=== PATIENT | male | born 1975 | race Hispanic/Latino ===

== ENCOUNTER 2022-06-12 12:55 | Inpatient (IN) | payer SELFPAY ==
[~2022-06-12 12:55] MED LIST: Iopamidol-370 76% 500 ML 1 ML ONE
[2022-06-12 13:18] LABS: #Basophils 0.1 thou/uL (0.0-0.2); #Eosinphils 0.1 thou/uL (0.0-0.7); #Lymphocytes 1.8 thou/uL (1.20-3.40); #Monocytes 0.4 thou/uL (0.11-0.59); #Neutrophils 12.1 thou/uL (1.40-6.50); %Basophils 0.7 % (0.0-1.0); %Eosinophils 0.6 % (0.0-10.0); %Lymphocytes 12.6 % (21.0-51.0); %Monocytes 2.8 % (0.0-10.0); %Neutrophils 83.3 % (42.0-75.0); Hemoglobin 15.1 g/dL (14.0-18.0); Mean Corpuscular HGB CONC 34.8 g/dL (32.0-36.0); Mean Corpuscular Hemoglobin 33.6 pg (27.0-31.0); Mean Corpuscular Volume 96.4 fl (78.0-98.0); Platelet Count 256 10x3/uL (130-400); RBC Distribution Width 11.9 % (11.5-14.5); White Blood Cell (WBC) Count 14.6 10x3/uL (4.8-10.8)
[2022-06-12 13:32] LABS: Acetaminophen Less than 10.0 mcg/mL (10.0-30.0); Alcohol Less than 10 mg/dL (Less than 10); Salicylate Less than 8.0 mg/dL (15.0-30.0)
[2022-06-12 13:35] LABS: PTT 25.1 sec (22.9-36.1); Prothrombin Time 13.1 sec (12.0-14.7)
[2022-06-12 13:38] LABS: ALT (SGPT) 19 U/L (8-55); AST (SGOT) 25 U/L (5-34); Albumin 4.7 g/dL (3.5-5.0); Alcohol Less than 10 mg/dL (Less than 10); Alkaline Phosphatase 57 U/L (40-110); Anion Gap 16 mmol/L (10-20); BUN (Urea Nitrogen) 14 mg/dL (8.9-20.6); Bilirubin, Total 0.9 mg/dL (0.2-1.2); Calc. Creatinine Clearance 0 mL/min (70-130); Calcium 9.4 mg/dL (7.8-10.44); Carbon Dioxide 21 mmol/L (22-29); Chloride 104 mmol/L (98-107); Estimated GFR 110; Globulin 3.1 g/dL (2.4-3.5); Glucose 105 mg/dL (70-105); Lipase 13 U/L (8-78); Potassium 3.8 mmol/L (3.5-5.1); Protein, Total 7.8 g/dL (6.0-8.3); Sodium 137 mmol/L (136-145)
[2022-06-12] MEDS ORDERED: Acetaminophen 325 MG TAB PO PRN (13:53)
[2022-06-12] MEDS ORDERED: Ipratropium/Albuterol 3 ML NEB NEB PRN (13:53)
[2022-06-12 16:52] VITALS: BMI 25.9
[2022-06-12] MEDS ORDERED: traMADol HCl 50 MG TAB PO PRN (17:54)
[2022-06-12] MEDS: traMADol HCl 50 MG TAB PO SCH ×2 (18:41→23:42)
[2022-06-12] MEDS ORDERED: Acetaminophen 500 MG TAB PO SCH (18:45)
[2022-06-12] MEDS: Sodium Chloride 0.9% 1,000 ML IV SCH (18:52)
[2022-06-12] MEDS ORDERED: TETANUS, DIPHTHERIA TOX,ADULT (TDVAX) 0.5 ML VIAL IM ONE (21:00)
[2022-06-12] MEDS: Gabapentin 300 MG CAP PO SCH (21:00)
[2022-06-12] MEDS: Senokot S 8.6-50 MG TAB PO SCH (21:01)
[2022-06-12] MEDS ORDERED: Ketorolac Tromethamine 30 MG/ML VIAL IVP PRN (23:12)
[2022-06-12] MEDS: Acetaminophen 500 MG TAB PO SCH (23:41)
[2022-06-12] MEDS: Morphine 2 MG/ML VIAL SLOW IVP PRN (23:43)
[2022-06-13] MEDS: Sodium Chloride 0.9% 1,000 ML IV SCH ×3 (03:10→11:33)
[2022-06-13] MEDS: Acetaminophen 500 MG TAB PO SCH (05:41)
[2022-06-13] MEDS: traMADol HCl 50 MG TAB PO SCH (05:42)
[2022-06-13] MEDS: Morphine 2 MG/ML VIAL SLOW IVP PRN ×2 (05:48→11:42)
[2022-06-13 06:07] LABS: #Lymphocytes 1.8 thou/uL (1.20-3.40); #Monocytes 0.5 thou/uL (0.11-0.59); #Neutrophils 5.7 thou/uL (1.40-6.50); %Basophils 0.2 % (0.0-1.0); %Eosinophils 0.4 % (0.0-10.0); %Lymphocytes 22.6 % (21.0-51.0); %Monocytes 6.6 % (0.0-10.0); %Neutrophils 70.3 % (42.0-75.0); Mean Corpuscular HGB CONC 34.3 g/dL (32.0-36.0); Mean Corpuscular Hemoglobin 33.2 pg (27.0-31.0); Mean Platelet Volume 7.9 fL (7.4-10.4); Platelet Count 226 10x3/uL (130-400); White Blood Cell (WBC) Count 8.2 10x3/uL (4.8-10.8)
[2022-06-13 06:21] LABS: Anion Gap 12 mmol/L (10-20); BUN (Urea Nitrogen) 15 mg/dL (8.9-20.6); Calc. Creatinine Clearance 101 mL/min (70-130); Calcium 8.6 mg/dL (7.8-10.44); Carbon Dioxide 21 mmol/L (22-29); Chloride 105 mmol/L (98-107); Estimated GFR 101; Glucose 104 mg/dL (70-105); Magnesium 2.2 mg/dL (1.6-2.6); Phosphorus 4.1 mg/dL (2.3-4.7); Potassium 3.9 mmol/L (3.5-5.1); Sodium 134 mmol/L (136-145)
[2022-06-13] MEDS ORDERED: Cyclobenzaprine 10 MG TAB PO PRN (08:03)
[2022-06-13] MEDS: Acetaminophen/Codeine 30-300mg Tablet PO SCH ×3 (08:59→20:35)
[2022-06-13] MEDS ORDERED: Polyethylene Glycol 3350 17 GM Packet PO SCH (09:00)
[2022-06-13] MEDS ORDERED: Aspirin 325 mg Enteric Coated Tablet PO SCH (09:00)
[2022-06-13] MEDS ORDERED: FLU VACC QS2022-23(6MOS UP)/PF 60 MCG/0.5 ML SYRINGE IM ONE (09:00)
[2022-06-13] MEDS: Ascorbic Acid 500 mg Chewable Tablet PO SCH (09:02)
[2022-06-13] MEDS: Gabapentin 300 MG CAP PO SCH ×3 (09:02→20:37)
[2022-06-13] MEDS: Senokot S 8.6-50 MG TAB PO SCH ×3 (09:02→20:35)
[2022-06-13] MEDS: Polyethylene Glycol 3350 17 GM Packet PO SCH (09:04)
[2022-06-13] MEDS ORDERED: Aspirin 81 mg Enteric Coated Tablet PO SCH (20:45)
[2022-06-14] MEDS: Acetaminophen/Codeine 30-300mg Tablet PO SCH ×4 (03:34→21:16)
[2022-06-14 05:43] LABS: #Eosinphils 0.1 thou/uL (0.0-0.7); #Lymphocytes 2.2 thou/uL (1.20-3.40); #Monocytes 0.7 thou/uL (0.11-0.59); #Neutrophils 9.3 thou/uL (1.40-6.50); %Basophils 0.1 % (0.0-1.0); %Eosinophils 0.6 % (0.0-10.0); %Lymphocytes 17.9 % (21.0-51.0); %Monocytes 5.5 % (0.0-10.0); %Neutrophils 75.9 % (42.0-75.0); Hemoglobin 12.9 g/dL (14.0-18.0); Mean Corpuscular HGB CONC 34.4 g/dL (32.0-36.0); Mean Corpuscular Hemoglobin 33.7 pg (27.0-31.0); Mean Platelet Volume 7.7 fL (7.4-10.4); Platelet Count 219 10x3/uL (130-400); RBC Distribution Width 11.8 % (11.5-14.5); Red Blood Cell (RBC) Count 3.84 mill/uL (4.70-6.10); White Blood Cell (WBC) Count 12.2 10x3/uL (4.8-10.8)
[2022-06-14 06:24] LABS: Anion Gap 9 mmol/L (10-20); BUN (Urea Nitrogen) 13 mg/dL (8.9-20.6); Calc. Creatinine Clearance 120 mL/min (70-130); Calcium 8.7 mg/dL (7.8-10.44); Carbon Dioxide 26 mmol/L (22-29); Chloride 104 mmol/L (98-107); Estimated GFR 111; Glucose 92 mg/dL (70-105); Magnesium 2.1 mg/dL (1.6-2.6); Phosphorus 2.7 mg/dL (2.3-4.7); Sodium 135 mmol/L (136-145)
[2022-06-14] MEDS: Aspirin 81 mg Enteric Coated Tablet PO SCH (09:17)
[2022-06-14] MEDS: Ascorbic Acid 500 mg Chewable Tablet PO SCH (09:17)
[2022-06-14] MEDS: Senokot S 8.6-50 MG TAB PO SCH ×2 (09:18→21:15)
[2022-06-14] MEDS: Gabapentin 300 MG CAP PO SCH ×3 (09:18→21:15)
[2022-06-14] MEDS: Polyethylene Glycol 3350 17 GM Packet PO SCH (09:19)
[2022-06-15] MEDS: Acetaminophen/Codeine 30-300mg Tablet PO SCH ×2 (02:38→08:14)
[2022-06-15 06:26] LABS: #Eosinphils 0.1 thou/uL (0.0-0.7); #Lymphocytes 1.9 thou/uL (1.20-3.40); #Monocytes 0.6 thou/uL (0.11-0.59); #Neutrophils 5.2 thou/uL (1.40-6.50); %Basophils 0.3 % (0.0-1.0); %Eosinophils 1.8 % (0.0-10.0); %Lymphocytes 24.3 % (21.0-51.0); %Monocytes 7.1 % (0.0-10.0); %Neutrophils 66.4 % (42.0-75.0); Hemoglobin 12.8 g/dL (14.0-18.0); Mean Corpuscular HGB CONC 33.8 g/dL (32.0-36.0); Mean Corpuscular Hemoglobin 33.1 pg (27.0-31.0); Mean Corpuscular Volume 97.7 fl (78.0-98.0); Mean Platelet Volume 7.9 fL (7.4-10.4); Platelet Count 211 10x3/uL (130-400); RBC Distribution Width 11.9 % (11.5-14.5); Red Blood Cell (RBC) Count 3.88 mill/uL (4.70-6.10); White Blood Cell (WBC) Count 7.9 10x3/uL (4.8-10.8)
[2022-06-15] MEDS: Senokot S 8.6-50 MG TAB PO SCH (08:13)
[2022-06-15] MEDS: Ascorbic Acid 500 mg Chewable Tablet PO SCH (08:13)
[2022-06-15] MEDS: Gabapentin 300 MG CAP PO SCH (08:14)
[2022-06-15] MEDS: Polyethylene Glycol 3350 17 GM Packet PO SCH (08:14)
[2022-06-15] MEDS: Aspirin 81 mg Enteric Coated Tablet PO SCH (08:18)
[2022-06-15 09:00] VITALS: BP 117/65; TEMP 99
== END 2022-06-15 11:10 | disposition home or self-care (01) | DRG 963 ==
LOC: ERS 12:55 → SJJU 13:57
PROVIDERS: ADMIT Surgery; ATTEND Surgery
DX: S12.110A Anterior displaced Type II dens fracture, initial encounter for closed fracture (principal); S36.115A Moderate laceration of liver, initial encounter; S06.5X9A Traumatic subdural hemorrhage with loss of consciousness of unspecified duration, initial encounter; I77.74 Dissection of vertebral artery; S52.501A Unspecified fracture of the lower end of right radius, initial encounter for closed fracture; S15.1 Injury of vertebral artery; S02.91XA Unspecified fracture of skull, initial encounter for closed fracture; S12.691A Other nondisplaced fracture of seventh cervical vertebra, initial encounter for closed fracture; R40.2412 Glasgow coma scale score 13-15, at arrival to emergency department; F17.210 Nicotine dependence, cigarettes, uncomplicated; G89.11 Acute pain due to trauma; W12.XXXA Fall on and from scaffolding, initial encounter
CPT/HCPCS: 36415; 70450; 70498; 70551; 71260; 71550; 72125; 72141; 74177; 80048; 80053; 80307; 83690; 83735; 84100; 84484; 85025; 85610; 85730; 86900; 86901; 90471; 90686; 90714; 93005; G0008; G0390; J1885; J2272; J7050; Q9967